=== PATIENT | female | born 1970 | race African-American/Black ===

== ENCOUNTER 2018-12-16 00:55 | Emergency (ER) | payer BC ==
[~2018-12-16] VITALS: Ht 175.3 cm; Wt 98.4 kg
[2018-12-16 01:00] VITALS: Ht 175.3 cm; Wt 98.4 kg
[2018-12-16 05:21] VITALS: BP 110/63
== END 2018-12-16 05:21 | disposition home or self-care (01) ==
LOC: ED 00:55
DX: R10.13 Epigastric pain (principal); R11.0 Nausea; J45.909 Unspecified asthma, uncomplicated
CPT/HCPCS: J1885; Q0092; Q0162

== ENCOUNTER 2019-03-18 17:02 | Emergency (ER) | payer BC ==
[~2019-03-18] VITALS: Ht 175.3 cm; Wt 103.9 kg
[2019-03-18 17:05] VITALS: Ht 175.3 cm; Wt 103.9 kg
[2019-03-18 20:21] VITALS: BP 139/80
== END 2019-03-18 20:21 | disposition home or self-care (01) ==
LOC: ED 17:02
DX: R51 Headache (principal); M54.2 Cervicalgia; J45.909 Unspecified asthma, uncomplicated; Z90.49 Acquired absence of other specified parts of digestive tract; Z98.890 Other specified postprocedural states
CPT/HCPCS: Q0092